=== PATIENT | male | born 1980 | race Caucasian/White ===

== ENCOUNTER 2022-05-02 09:01 | Emergency (ER) | payer BC, SELFPAY ==
--- NOTE | ~2022-05-02 | XR_ITS ---
EXAMINATION: XR forearm LT 2V INDICATION: Left arm pain TECHNIQUE: Two views of the left forearm are obtained. COMPARISON: None available FINDINGS: There is soft tissue swelling of the distal forearm. There is no fracture. Alignment at the wrist and elbow is normal. No radiopaque foreign body is identified. IMPRESSION: 1. Soft tissue swelling without evidence of acute osseous abnormality or radiopaque foreign body. Reviewed, dictated and finalized at location A. IMPRESSION: 1. Soft tissue swelling without evidence of acute osseous abnormality or radiop aque foreign body.
[2022-05-02 09:11] VITALS: BP 141/84; PULSE 85; RESP 18; TEMP 36.3; O2SAT 100
--- NOTE | 2022-05-02 09:33 | ED.WOUNDLAC ---
HPI - Wound/Laceration General Chief Complaint: Wound/Laceration Stated Complaint: Lac L arm Time Seen by Provider: 05/02/22 09:18 Source: patient Mode of arrival: ambulatory History of Present Illness HPI narrative: 41 year old male presents today with complaints of wound to the left wrist. Patient was at work using a drill with an extension. He was drilling up when the extension broke and hit his arm causing a round would to the left forearm. Bleeding currently controlled. Patient up to date on tetanus. CMS intake. Related Data Allergies Allergy/AdvReac Type Severity Reaction Status Date / Time acetaminophen AdvReac Itching Verified 05/02/22 09:10 [From Tylenol-Codeine #3] codeine AdvReac Itching Verified 05/02/22 09:10 [From Tylenol-Codeine #3] Review of Systems Review of Systems: CONSTITUTIONAL: Denies fever, chills, or sweats. EYES: Denies visual changes, redness, or discharge. ENT: Denies rhinorrhea, congestion, sore throat, or otalgia. CARDIOVASCULAR: Denies chest pain, palpitations, or edema. RESPIRATORY: Denies cough or dyspnea. GASTROINTESTINAL: Denies abdominal pain, nausea, vomiting, or diarrhea. GENITOURINARY: Denies dysuria or hematuria. SKIN: Wound to left forearm. Denies rash or itching. MUSCULOSKELETAL: Denies back pain, joint pain, or myalgia. NEUROLOGIC: Denies headache, numbness, dizziness, or weakness. PSYCHIATRIC: Denies anxiety or depression. Exam Narrative: GENERAL: Well-appearing, well-nourished, and in no acute distress. HEAD: Normocephalic, atraumatic. EYES: PERRLA and EOMI. ENT: Nares clear, no rhinorrhea or epistaxis. Mucous membranes moist. Oropharynx without tonsillar hypertrophy exudate or other lesions. Bilateral TMs pearly lawrence nonbulging NECK: Supple. No adenopathy or masses. No carotid bruits or JVD CHEST: Clear to auscultation. No respiratory distress. No wheezes rales or rhonchi HEART: Regular rate and rhythm. No murmur heard. Normal peripheral pulses. ABDOMEN: Soft, nontender, nondistended, normal active bowel sounds. EXTREMITIES: Normal range of motion. No edema. SKIN: 1 cm round wound to left forearm. Bleeding currently controlled. CMS intact. Warm, dry, no rash. NEURO: No focal deficits. Alert and oriented x3. PSYCH: Normal mood and affect. Course Course Emergency Course: Patient up to date on tetanus. Laceration repaired without difficulty. Wound care reviewed. Patient discharged home with antibiotics and follow up in 7 days for suture removal. Vital Signs Vital signs: Vital Signs Temperature 36.3 C L 05/02/22 09:11 Pulse Rate 85 05/02/22 09:11 Respiratory Rate 18 05/02/22 09:11 Blood Pressure 141/84 H 05/02/22 09:11 Pulse Oximetry 100 05/02/22 09:11 Oxygen Delivery Room Air 05/02/22 09:11 Temperature 36.3 C L 05/02/22 09:11 Pulse Rate 85 05/02/22 09:11 Respiratory Rate 18 05/02/22 09:11 Blood Pressure 141/84 H 05/02/22 09:11 Pulse Oximetry 100 05/02/22 09:11 Oxygen Delivery Room Air 05/02/22 09:11 Procedures Laceration Laceration 1: Date: 05/02/22 Time: 10:50 Site: upper extremity (forearm) Side (If applicable): left Size (cm): 1 Description: other (round) Depth: simple, single layer Local Anesthetic: lidocaine 1% and with epi Amount of anesthesia used (mL): 2.5 Pre-repair: wound explored and irrigated extensively ====== Skin Level ====== Skin layer closed with: nylon Size (cm): 4-0 Number of sutures: 3 Technique: simple, interrupted ====== Subcutaneous Layer ====== ====== Muscle Layer ====== ====== Tendon Layer ====== Dressing: antibiotic ointment with non adherent MDM - Wound/Laceration MDM Narrative Medical decision making narrative: 41-year-old male HPI as noted. Laceration repaired without difficulty. Due to nature of wound will send home with p.o. antibiotics and pl
== END 2022-05-02 11:07 | disposition home or self-care (01) ==
PROVIDERS: Emergency Provider Nurse Practitioner Family
DX: S51.812A Laceration without foreign body of left forearm, initial encounter (principal); W29.8XXA Contact with other powered hand tools and household machinery, initial encounter
CPT/HCPCS: 12001; 73090; 99283